=== PATIENT | male | born 1965 | race African-American/Black ===

== ENCOUNTER 2023-11-03 15:32 | Inpatient (IN) | payer MEDICAID ==
[~2023-11-03] VITALS: Ht 180.3 cm; Wt 132.4 kg
[2023-11-03] MEDS: SODIUM CHLORIDE 0.9% 1,000 ML IV ONE (15:45)
[2023-11-03] MEDS: LORAZEPAM 2MG/ML INJ IM ONE ×2 (16:30→17:13)
[2023-11-03] MEDS: LORAZEPAM 2MG/ML INJ IV ONE (16:34)
[2023-11-03] MEDS: HALOPERIDOL LACTATE 5MG/ML VIAL IM ONE (16:36)
[2023-11-03] MEDS: HYDRALAZINE 20MG/ML VIAL IV ONE ×2 (18:43→21:01)
[2023-11-03 19:14] LABS: BASOPHILS % 0.7 % (0.0-2.0); EOSINOPHILS % 0.3 % (0.0-5.0); HEMOGLOBIN. 15.8 g/dL (14.0-18.0); LYMPHOCYTES % 25.4 % (20.0-50.0); MEAN CORPUSCULAR HEMOGLOBIN 29.5 pg (28.0-32.0); MEAN CORPUSCULAR VOLUME 89.3 fL (80.0-94.0); MEAN PLATELET VOLUME 9.6 fl (7.4-10.4); MONOCYTES % 9.4 % (2.0-8.0); NEUTROPHILS % 64.2 % (40.0-76.0); PLATELET 226 x1000/uL (130-400); RED BLOOD CELL COUNT 5.37 mill/uL (4.7-6.1); RED CELL DISTRIBUTION WIDTH 15.2 % (11.6-14.6); WHITE BLOOD COUNT 7.6 x1000/uL (4.5-11.0)
[2023-11-03 19:24] LABS: CARBON DIOXIDE 27 mEq/L (21-32); CHLORIDE 108 mEq/L (98-107); POTASSIUM 3.6 mEq/L (3.5-5.1); SODIUM 143 mEq/L (136-145)
[2023-11-03 19:25] LABS: CALCIUM 9.5 mg/dL (8.7-10.4)
[2023-11-03 19:29] LABS: CREATININE 1.2 mg/dL (0.6-1.3)
[2023-11-03 19:30] LABS: GLUCOSE 125 mg/dL (70-105); INR 1.1; PROTHROMBIN TIME 11.9 sec (9.6-11.0); UREA NITROGEN BLOOD 12 mg/dL (9-23)
[2023-11-03 19:31] LABS: ALANINE AMINOTRANSFERASE 31 IU/L (10-49); AMMONIA < 17 uMol/L (<32); ASPARTATE AMINOTRANSFERASE 34 IU/L (<34); TROPONIN I HIGH SENSITIVITY 37 ng/L (3.0-53)
[2023-11-03 19:32] LABS: ALBUMIN 4.3 g/dL (3.2-4.8); BILIRUBIN DIRECT 0.2 mg/dL (<=3.0); BILIRUBIN TOTAL 0.5 mg/dL (0.1-1.0); PROTEIN TOTAL 7.3 g/dL (6.0-8.3)
[2023-11-03 19:34] LABS: ETHANOL BLOOD < 10 mg/dL (<10)
[2023-11-03] MEDS ORDERED: DEXTROSE 50% WATER 50ML SYRINGE IV PRN (23:15)
[2023-11-03] MEDS ORDERED: ACETAMINOPHEN 325MG TABLET PO PRN (23:15)
[2023-11-03] MEDS: SODIUM CHLORIDE 0.45% 1,000 ML IV SCH (23:15)
[2023-11-03] MEDS ORDERED: IPRATROPIUM/ALBUTEROL 0.5-3(2.5)MG/3ML NEB HHN PRN (23:15)
[2023-11-03] MEDS ORDERED: DEXT 5%/0.45% NACL 1000ML 1,000 ML IV SCH (23:15)
[2023-11-03] MEDS: LISINOPRIL 5MG TABLET PO SCH (23:57)
[2023-11-04] MEDS ORDERED: HYDRALAZINE 20MG/ML VIAL IV PRN (00:15)
[2023-11-04] MEDS ORDERED: LORAZEPAM 2MG/ML INJ IV PRN (00:15)
[2023-11-04 00:52] LABS: CLARITY URINE CLEAR (CLEAR); COLOR URINE DARK YELLOW (YELLOW); GLUCOSE URINE NEGATIVE (NEGATIVE); KETONES URINE TRACE (NEGATIVE); LEUKOCYTE ESTERASE URINE NEGATIVE (NEGATIVE); NITRITE URINE NEGATIVE (NEGATIVE); OCCULT BLOOD URINE NEGATIVE (NEGATIVE); PROTEIN URINE 2+ (NEGATIVE); SPECIFIC GRAVITY URINE 1.033 (1.005-1.030); UROBILINOGEN URINE 0.2 E.U./dL (0.2-1.0)
[2023-11-04 00:58] LABS: *AMPHETAMINES SCREEN URINE NEGATIVE (NEGATIVE); *BARBITURATES SCREEN URINE NEGATIVE (NEGATIVE); *BENZODIAZEPINES SCREEN URINE NEGATIVE (NEGATIVE); *COCAINE SCREEN URINE PRESUMPTIVE POSITIVE (NEGATIVE); CANNABINOID URINE SCREEN NEGATIVE (NEGATIVE); ECSTASY MDMA SCREEN URINE NEGATIVE (NEGATIVE); METHADONE URINE SCREEN NEGATIVE (NEGATIVE); OPIATES URINE SCREEN NEGATIVE (NEGATIVE); PHENCYCLIDINE URINE SCREEN NEGATIVE (NEGATIVE)
[2023-11-04 01:37] LABS: PHOSPHORUS 3.7 mg/dL (2.5-4.9)
[2023-11-04 02:05] LABS: BACTERIA URINE TRACE; RBC URINE NONE SEEN /hpf (0-2); SQUAMOUS EPITHELIAL CELL URINE FEW /lpf (RARE/1+)
[2023-11-04 04:00] VITALS: BP 146/59; PULSE 62; RESP 20; TEMP 35.78064; O2SAT 99
[2023-11-04 05:07] VITALS: BP 146/78; PULSE 75; RESP 20; TEMP 36.696
[2023-11-04] MEDS ORDERED: HYDR12.54 MT (06:21)
[2023-11-04] MEDS ORDERED: INSU100I28 SQ (06:21)
[2023-11-04] MEDS ORDERED: INSLIS SUBCUT (06:22)
[2023-11-04] MEDS: INSULIN LISPRO 100 UNITS/ML SUBCUT SCH (06:59)
[2023-11-04] MEDS: BLOOD SUGAR DIAGNOSTIC STRIP TEST SCH (06:59)
[2023-11-04 08:00] VITALS: BP 145/78; PULSE 63; RESP 20; TEMP 36.28068; O2SAT 94
[2023-11-04 10:16] LABS: BASOPHILS % 0.7 % (0.0-2.0); DIFFERENTIAL COMMENT 0; EOSINOPHILS % 2.4 % (0.0-5.0); HEMATOCRIT. 44.2 % (42.0-52.0); HEMOGLOBIN. 14.4 g/dL (14.0-18.0); LYMPHOCYTES % 26.6 % (20.0-50.0); MEAN CORPUSCULAR HEMOGLOBIN 29.4 pg (28.0-32.0); MEAN CORPUSCULAR HGB CONC 32.6 g/dL (31.0-37.0); MEAN CORPUSCULAR VOLUME 90.2 fL (80.0-94.0); MEAN PLATELET VOLUME 9.6 fl (7.4-10.4); MONOCYTES % 8.6 % (2.0-8.0); NEUTROPHILS % 61.7 % (40.0-76.0); PLATELET 192 x1000/uL (130-400); RED CELL DISTRIBUTION WIDTH 15.2 % (11.6-14.6); WHITE BLOOD COUNT 5.6 x1000/uL (4.5-11.0)
[2023-11-04 10:24] LABS: CHLORIDE 107 mEq/L (98-107); POTASSIUM 3.2 mEq/L (3.5-5.1); SODIUM 141 mEq/L (136-145)
[2023-11-04 10:25] LABS: CALCIUM 8.7 mg/dL (8.7-10.4); CARBON DIOXIDE 28 mEq/L (21-32)
[2023-11-04 10:29] LABS: CREATINE KINASE MB FRACTION 7.4 ng/mL (0.5-3.6)
[2023-11-04 10:30] LABS: GLUCOSE 219 mg/dL (70-105); TRIGLYCERIDE 114 mg/dL (0-150); UREA NITROGEN BLOOD 11 mg/dL (9-23)
[2023-11-04 10:31] LABS: LDL CHOLESTEROL 116 mg/dL (5-100)
[2023-11-04 10:32] LABS: CHOLESTEROL 159 mg/dL (<200); HDL CHOLESTEROL 29 mg/dL (>55); T4 FREE 1.25 ng/dL (0.89-1.76)
[2023-11-04 10:33] LABS: THYROID STIMULATING HORMONE 0.82 uIU/mL (0.55-4.78)
[2023-11-04 12:00] VITALS: BP 137/72; PULSE 56; RESP 18; TEMP 36.61404; O2SAT 94
[2023-11-04 16:00] VITALS: BP 122/67; PULSE 70; RESP 20; TEMP 36.44736; O2SAT 100
[2023-11-04 17:22] LABS: CREATINE KINASE MB FRACTION 6.3 ng/mL (0.5-3.6)
[2023-11-04] MEDS ORDERED: POTASSIUM CHLORIDE 40 MEQ in DEXT 5% WATER 230 ML IV ONE (19:15)
[2023-11-04 20:00] VITALS: BP 104/53; PULSE 69; RESP 18; TEMP 36.28068; O2SAT 98
[2023-11-04] MEDS: KCL 20MEQ/100ML X 2 FOR TOTAL KCL 40MEQ/200ML IV SCH (20:04)
[2023-11-04] MEDS: FAMOTIDINE 20MG TABLET PO SCH (20:50)
[2023-11-04] MEDS: ENOXAPARIN 40MG/0.4ML SYR SUBCUT SCH (20:50)
[2023-11-05] VITALS: BP 143/69; PULSE 59; RESP 20; TEMP 36.28068; O2SAT 97
[2023-11-05 04:00] VITALS: BP 145/93; PULSE 64; RESP 18; TEMP 36.44736
[2023-11-05 08:00] VITALS: BP 156/66; PULSE 60; RESP 18; TEMP 36.55848; O2SAT 100
[2023-11-05 10:16] LABS: POTASSIUM 3.7 mEq/L (3.5-5.1)
[2023-11-05 12:00] VITALS: BP 133/82; PULSE 62; RESP 18; TEMP 36.44736; O2SAT 98
[2023-11-05 13:28] VITALS: BP 133/82; PULSE 62; TEMP 97.6; O2SAT 97
[2023-11-05] MEDS ORDERED: INSU100I28 SQ (13:30)
[2023-11-05] MEDS ORDERED: HYDR12.54 MT (13:30)
[2023-11-05] MEDS ORDERED: LISI-186 PO (13:30)
[2023-11-05] MEDS: MAGNESIUM OXIDE 400MG TABLET PO SCH (13:58)
[2023-11-05] MEDS: POTASSIUM CHLORIDE 20MEQ TABLET SR PO SCH (13:58)
== END 2023-11-05 15:25 | disposition home or self-care (01) | DRG 812 ==
LOC: ER 15:32 → 8WST 20:16 → EDBEDREQ 20:17
PROVIDERS: ADMIT Hospitalist; ATTEND Hospitalist
DX: T43.651A Poisoning by methamphetamines accidental (unintentional), initial encounter (principal); I67.4 Hypertensive encephalopathy; E11.9 Type 2 diabetes mellitus without complications; F15.129 Other stimulant abuse with intoxication, unspecified; I16.0 Hypertensive urgency; F17.210 Nicotine dependence, cigarettes, uncomplicated; I10 Essential (primary) hypertension; R41.82 Altered mental status, unspecified; Z59.00 Homelessness unspecified; Z86.73 Personal history of transient ischemic attack (TIA), and cerebral infarction without residual deficits; Z79.4 Long term (current) use of insulin; I25.2 Old myocardial infarction; Z79.899 Other long term (current) drug therapy
CPT/HCPCS: 36415; 71045; 80048; 80061; 80076; 80305; 80320; 81003; 82140; 82550; 82553; 82962; 83036; 83605; 83735; 83880; 84100; 84132; 84439; 84443; 84484; 85025; 93005; 97162; 97166; 99285; J0360; J1630; J1650; J1815; J2060; J3480; J7030; G0480